=== PATIENT | female | born 1975 | race Caucasian/White ===

== ENCOUNTER 2016-08-28 16:14 | Emergency (ER) | payer BC ==
[~2016-08-28] VITALS: Wt 72.5 kg
[~2016-08-28 16:14] MED LIST: ALBU2.5V3 NEB; ALBU8.5H5 IH; BEN25 PO; LORA-186 PO; METH-480 PO
[2016-08-28] MEDS ORDERED: FAMOTIDINE 20 MG TAB PO STA (16:59)
[2016-08-28] MEDS ORDERED: BELLADONNA/PHENOBARBITAL TAB PO STA (16:59)
[2016-08-28] MEDS ORDERED: LIDOCAINE/MYLANTA 40 ML BTL PO STA (16:59)
[2016-08-28 18:29] LABS: ADD UMIC YES; URINE BILIRUBIN (Dip) NEGATIVE (NEGATIVE); URINE BLOOD (Dip) 2+ (NEGATIVE); URINE COLOR LT. YELLOW (YELLOW); URINE GLUCOSE (Dip) NEGATIVE (NEGATIVE); URINE KETONES (Dip) NEGATIVE (NEGATIVE); URINE LEUKOCYTE ESTERASE (Dip) NEGATIVE (NEGATIVE); URINE NITRITE (Dip) NEGATIVE (NEGATIVE); URINE TOTAL PROTEIN (Dip) NEGATIVE (NEGATIVE); URINE UROBILINOGEN (Dip) 0.2 E.U./dL (0.1-1.0)
[2016-08-28 18:59] LABS: BACTERIA,URINE FEW; SQUAMOUS EPITHELIAL CELL,UR FEW
[2016-08-28] MEDS ORDERED: NAPR-260 PO (19:02)
[2016-08-28] MEDS ORDERED: CIPR500T4 PO (19:02)
[2016-08-28 19:30] VITALS: BP 112/62; PULSE 86; RESP 20; TEMP 98
--- NOTE | 2016-08-28 23:15 | ERD ---
ER Documentation Chief Complaint Date/Time DATE: 08/28/16 TIME: 23:12 Chief Complaint LEFT SIDE AP WITH NAUSEA NO VOMITING. MILK DYSURIA NOTED. NO DIARRHEA HPI 41-year-old woman complains of left flank pain and suprapubic discomfort, she states she always has hematuria as does her father. She denies history of kidney or ureter stones, no fevers or chills, no chest pain or shortness of breath. She states she has had increased urinary frequency and dysuria. No recent antibiotic use. ROS All systems reviewed and are negative except as per history of present illness. Medications Home Meds Active Scripts Ciprofloxacin Hcl* (Ciprofloxacin Hcl*) 500 Mg Tablet, 500 MG PO BID, #10 TAB Prov:LIBBY GARNER MD 08/28/16 Naproxen* (Naprosyn*) 500 Mg Tablet, 500 MG PO BID Y for PAIN AND/OR INFLAMMATION, #30 TAB Prov:LIBBY GARNER MD 08/28/16 Reported Medications Diphenhydramine Hcl* (Benadryl*) 25 Mg Cap, 25 MG PO Q8 Y for ITCHING, CAP 11/29/14 Loratadine* (Claritin*) 10 Mg Tablet, 10 MG PO DAILY, TAB 11/29/14 Albuterol Sulfate* (Albuterol Sulfate* HFA) 8.5 Gm Hfa.aer.ad, 2 PUFF IH DAILY Y for WHEEZING AND SOB, EA 11/29/14 Albuterol Sulfate* (Albuterol Sulfate* Neb) 0.083%-3 Ml Neb, 2.5 MG NEB Q4H Y for WHEEZING AND SOB, EA 11/29/14 Methyldopa* (Aldomet*) 500 Mg Tab, 500 MG PO BID 06/06/13 Allergies Allergies: Coded Allergies: Penicillins (Verified Allergy, Unknown, 10/14/13) latex (Verified Allergy, Unknown, 10/14/13) PMhx/Soc Asthma History of Surgery: Yes ( x5, RHINOPLASTY, TUMMY TUCK, RIGHT SHOULDER SURGERY) Anesthesia Reaction: No Hx Neurological Disorder: No Hx Respiratory Disorders: No Hx Cardiac Disorders: Yes (HTN, HIGH CHOLESTEROL) Hx Psychiatric Problems: No Hx Miscellaneous Medical Probl: Yes (BLOOD CLOT TO RIGHT ARM) Hx Alcohol Use: No Hx Substance Use: No Hx Tobacco Use: No FmHx Family History: No diabetes Physical Exam Vitals Vital Signs Date Time Temp Pulse Resp B/P Pulse Ox O2 Delivery O2 Flow Rate FiO2 08/28/16 19:30 98.0 86 20 112/62 100 Room Air 08/28/16 16:38 98.3 92 21 111/57 100 Physical Exam GENERAL: Well-developed, well-nourished, well-hydrated, in no apparent distress , looks nontoxic in appearance HEENT: Moist mucous membranes, pink conjunctiva, no cervical spine tenderness or step-off deformities, no goiter, no jaundice or icterus, extraocular movements intact without pain. No submandibular induration, and no pharyngeal erythema NEURO: Alert and oriented 3, cranial nerves II through XII intact bilaterally, pupils equal round reactive to light, no focal deficits or facial asymmetry, sensation intact distally Strength 5/5 in upper and lower extremities bilaterally CARDIAC: Regular rate and rhythm, no murmurs rubs or gallops LUNGS: Clear bilaterally no wheezing crackles or stridor ABDOMEN: Soft nontender, no guarding, no rigidity, no rebound, no psoas sign no obturator sign. Normoactive bowel sounds SKIN: Warm and dry to touch, no abrasions, contusions, or hematomas, no lacerations, no ecchymosis, no target lesions, and without ulcers EXTREMITIES: No clubbing cyanosis or edema, calves are bilaterally symmetrical, no Homans sign, no popliteal cord sign. Distal pulses equal and bilateral PSYCH: Normal affect without agitation or irritability Results 24 hrs Laboratory Tests Test 08/28/16 17:20 08/28/16 17:40 Serum HCG, Qualitative NEGATIVE Urine Color LT. YELLOW Urine Clarity CLEAR Urine pH 6.0 Urine Specific [place] <=1.005 Urine Ketones NEGATIVE Urine Nitrite NEGATIVE Urine Bilirubin NEGATIVE Urine Urobilinogen 0.2 E.U./dL Urine Leukocyte Esterase NEGATIVE Urine Microscopic RBC 10-25/HPF Urine Microscopic WBC 0-2/HPF Urine Squamous Epithelial Cells FEW Urine Bacteria FEW Urine Hemoglobin 2+ Urine Glucose NEGATIVE% Urine Total Protein NEGATIVE Current Medications Medications (Trade) Dose Ordered Sig/Carlos Manuel Route PRN Reason Start Time Stop Time Status Last Admin Dose Admin Famotidine (Pepcid) 40 mg ONCE STAT PO 08/28/16 16:59 08/28/16 17:00 DC 08/28/16 17:50 Miscellaneous Medication (Gi Cocktail (2)) 40 ml ONCE STAT PO 08/28/16 16:59 08/28/16 17:00 DC 08/28/16 17:50 Belladonna/ Phenobarbital () 2 tab ONCE STAT PO 08/28/16 16:59 08/28/16 17:00 DC 08/28/16 17:50 Procedures/MDM I administered famotidine 40 mg p.o. and a GI cocktail 50 cc p.o. Patient's urine analysis was positive for blood, although she states this is chronic. I do suspect a urinary tract infection and will be treating as an outpatient with antibiotics, I also informed her that kidney or ureter stone may be a possibility but she has had previous CT scans of abdomen and pelvis in the past we decided at this time risks outweigh benefits. She also states she has a urology appointment scheduled for early next week, she may be a candidate for cystoscopy given her chronic hematuria. Urine cultures are pending I will follow-up. Patient has no CVA tenderness on exam, is afebrile, and without pain at this time. Differential diagnoses considered, included but not limited to acute coronary syndrome, pulmonary embolism, aortic dissection, abdominal aortic aneurysm, sepsis, stroke, meningitis, encephalitis, pneumonia, appendicitis, cholecystitis , bowel obstruction, pyelonephritis, nephrolithiasis, cystitis, as well as metabolic, hematologic, and electrolyte abnormalities. As well as abscess, cellulitis, fractures, and dislocations. Patient feels much better at this time, and vital signs are normal, symptoms have improved. I did give strict instructions to return to the ED if symptoms continue or worsen, patient will otherwise follow-up with primary care physician. Patient understood instructions and agreed to plan. Departure Diagnosis: Primary Impression: Hematuria Additional Impression: Flank pain Condition: Good Patient Instructions: Flank Pain, Uncertain Cause, Hematuria LIBBY GARNER MD Aug 28, 2016 23:15
== END 2016-08-28 19:30 | disposition home or self-care (01) ==
LOC: E/R 16:14 → FTE 19:30
DX: R31.9 Hematuria, unspecified (principal); I10 Essential (primary) hypertension
CPT/HCPCS: 81001; 81003; 84703; 99283

== ENCOUNTER 2018-10-12 05:39 | Emergency (ER) | payer BC ==
[~2018-10-12] VITALS: Ht 157.5 cm; Wt 107.6 kg
[~2018-10-12 05:39] MED LIST changes: +CIPR500T4 PO; +NAPR-985 PO
[2018-10-12 05:59] VITALS: BP 153/98; PULSE 92; RESP 16; Ht 157.5 cm; Wt 107.6 kg
== END 2018-10-12 14:05 | disposition left against medical advice (07) ==
LOC: E/R 05:39
DX: Z53.21 Procedure and treatment not carried out due to patient leaving prior to being seen by health care provider (principal)
CPT/HCPCS: 93005

== ENCOUNTER 2018-12-06 17:29 | Emergency (ER) | payer BC ==
[~2018-12-06] VITALS: Ht 165.1 cm; Wt 104.5 kg
[2018-12-06 17:37] VITALS: BP 127/73; PULSE 89; RESP 18; Ht 165.1 cm; Wt 104.5 kg
[2018-12-06] MEDS ORDERED: ACETAMINOPHEN 325 MG TAB PO ONE (20:00)
[2018-12-06] MEDS ORDERED: DIPHTH/TET/ACEL PERTUSS (ADULT) 0.5 ML VIAL IM* ONE (20:00)
[2018-12-06] MEDS ORDERED: LIDOCAINE 1% (MDV) 20 ML INJ SC ONE (20:00)
--- NOTE | 2018-12-06 20:05 | ERD ---
ER Documentation Chief Complaint Chief Complaint lt hand lac , cut with knife accidently working in kitchen HPI This 43-year-old female presents with a left hand laceration after cutting her palm trying to separate some frozen bread. She has no restricted range of motion or deficits and the entire night was pulled out. Tetanus is not up-to-date. ROS All systems reviewed and are negative except as per history of present illness. Medications Home Meds Active Scripts Ciprofloxacin Hcl* (Ciprofloxacin Hcl*) 500 Mg Tablet, 500 MG PO BID, #10 TAB Prov:LIBBY GARNER MD 08/28/16 Naproxen* (Naprosyn*) 500 Mg Tablet, 500 MG PO BID PRN for PAIN AND/OR INFLAMMATION, #30 TAB Prov:LIBBY GARNER MD 08/28/16 Reported Medications Diphenhydramine Hcl* (Benadryl*) 25 Mg Cap, 25 MG PO Q8 PRN for ITCHING, CAP 11/29/14 Loratadine* (Claritin*) 10 Mg Tablet, 10 MG PO DAILY, TAB 11/29/14 Albuterol Sulfate* (Albuterol Sulfate* HFA) 8.5 Gm Hfa.aer.ad, 2 PUFF IH DAILY PRN for WHEEZING AND SOB, EA 11/29/14 Albuterol Sulfate* (Albuterol Sulfate* Neb) 0.083%-3 Ml Neb, 2.5 MG NEB Q4H PRN for WHEEZING AND SOB, EA 11/29/14 Methyldopa* (Aldomet*) 500 Mg Tab, 500 MG PO BID 06/06/13 Allergies Allergies: Coded Allergies: Penicillins (Verified Allergy, Unknown, 10/14/13) latex (Verified Allergy, Unknown, 10/14/13) PMhx/Soc History of Surgery: Yes ( x5, RHINOPLASTY, TUMMY TUCK, RIGHT SHOULDER SURGERY) Anesthesia Reaction: No Hx Neurological Disorder: No Hx Respiratory Disorders: No Hx Cardiac Disorders: Yes (HTN, HIGH CHOLESTEROL) Hx Psychiatric Problems: No Hx Miscellaneous Medical Probl: Yes (BLOOD CLOT TO RIGHT ARM) Hx Alcohol Use: No Hx Substance Use: No Hx Tobacco Use: No Smoking Status: Never smoker FmHx Family History: No diabetes, No coronary disease, No other Physical Exam Vitals Vital Signs Date Temp Pulse Resp B/P (MAP) Pulse Ox O2 O2 Flow FiO2 Time Delivery Rate 7/5/19 98.1 89 18 127/73 98 17:37 (91) Physical Exam Const: No acute distress Head: Atraumatic Eyes: Normal Conjunctiva ENT: Normal External Ears, Nose and Mouth. Neck: Full range of motion. No meningismus. Resp: Clear to auscultation bilaterally Cardio: Regular rate and rhythm, no murmurs Abd: Soft, non tender, non distended. Normal bowel sounds Skin: No petechiae or rashes Back: No midline or flank tenderness Ext: No cyanosis, or edema left palm with approximately 1.8 cm laceration. No active bleeding. No deficits, restricted range of motion, erythema, discharge. Neur: Awake and alert Psych: Normal Mood and Affect Results 24 hrs Current Medications Medications Dose Sig/Carlos Manuel Start Time Status Last (Trade) Ordered Route PRN Stop Time Admin Dose Reason Admin 650 mg ONCE ONCE 12/06/18 DC Acetaminophen PO 20:00 12/06/18 (Tylenol 20:01 Tab) Lidocaine 20 ml ONCE ONCE 12/06/18 DC (Xylocaine SC 20:00 12/06/18 1% (Mdv) 20 20:01 ml) Diphtheria/ 0.5 ml ONCE ONCE 12/06/18 DC Tetanus/Acell IM* 20:00 12/06/18 Pertussis 20:01 (Adacel) Procedures/MDM Tetanus booster given. Tylenol given for pain. Procedure note-left palm laceration irrigated copiously with normal saline. 2 cc of lidocaine used for local filtration. Three 4-0 nylon sutures used to reapproximate the wound. Patient tolerated procedure well and wound was dressed. She will be discharged home with recommendations for 2-day recheck in 7 days suture removal. She should return sooner for fevers, redness, new worsening symptoms. Departure Diagnosis: Primary Impression: Laceration Condition: Stable Patient Instructions: Laceration, Hand Referrals: DOCTOR,NOT ON STAFF (PCP) Additional Instructions: Recommend 2-day recheck for infection in 7 days suture removal. Recheck sooner for redness, fevers, new or worsening symptoms. RAFIA BEARD MD Dec 06, 2018 20:05
== END 2018-12-06 20:11 | disposition home or self-care (01) ==
LOC: FTE 17:29
DX: S61.412A Laceration without foreign body of left hand, initial encounter (principal); I10 Essential (primary) hypertension; W26.0XXA Contact with knife, initial encounter; Y92.000 Kitchen of unspecified non-institutional (private) residence as the place of occurrence of the external cause; Z23 Encounter for immunization; Z91.040 Latex allergy status
CPT/HCPCS: 90471; 90715